=== PATIENT | male | born 1990 | race Hispanic/Latino ===

== ENCOUNTER 2025-09-15 10:48 | Emergency (ER) | payer SELFPAY ==
[~2025-09-15] VITALS: Ht 160 cm; Wt 63.7 kg
[2025-09-15 12:50] LABS: BASOPHILS 0.6 % (0.2-1.2); EOSINOPHILS 0.6 % (0.8-7.0); LYMPHOCYTES 24.4 % (21.8-53.1); MCH 26.5 PG (25.7-32.2); MCHC 32.0 g/dL (32.3-36.5); MCV 82.8 fL (79.0-92.2); MONOCYTES 6.6 % (5.3-12.2); NEUTROPHILS 67.5 % (34.0-67.9); RBC 4.76 M/uL (4.63-6.08)
[2025-09-15 13:03] LABS: ALT (SGPT) 57.0 U/L (14-59); AST (SGOT) 26.0 U/L (15-37); GLOMERULAR FILTRATION RATE,EST 130.0 mL/min (>60); PROTEIN, TOTAL 7.6 g/dL (6.4-8.2); UREA NITROGEN 12.0 mg/dL (7-18)
[2025-09-15 13:44] VITALS: BP 114/63
--- NOTE | 2025-09-16 09:55 | EKG ---
[facility] [address] [facility] [place], [place] [address] Signed Sinus bradycardia Otherwise normal ECG No previous ECGs available Confirmed by Jeff Ga DO ([id number]) on 09/16/2025 9:54:55 AM Electronically Signed By: JEFF GA DO 09/16/25 0955 PATIENT NAME: BLAZE HERNANDEZYanira PARMAREMA Electrocardiogram DATE OF : 88 PHYSICIAN: JEFF GA DO REPORT #: [id number] REPORT IS CONFIDENTIAL AND NOT TO BE RELEASED WITHOUT AUTHORIZATION
== END 2025-09-15 13:45 | disposition home or self-care (01) ==
LOC: ED 10:48
PROVIDERS: Emergency Medicine
DX: R07.89 Other chest pain (principal); R06.02 Shortness of breath; Z88.5 Allergy status to narcotic agent
CPT/HCPCS: 36415; 71045; 80053; 83735; 84484; 85025; 93005; 93010; 99285-25